=== PATIENT | male | born 1995 | race Caucasian/White ===

== ENCOUNTER 2023-12-10 10:42 | Emergency (ER) | payer BC, OTHER, SELFPAY ==
[2023-12-10 10:45] VITALS: BP 123/63; PULSE 64; RESP 14; TEMP 36.7; O2SAT 98; BMI 22.9
[2023-12-10 11:12] LABS: UR Morphine/Opiate cutoff 300 Negative (Negative); Ur Creatinine Normal (Normal); Ur Specific Gravity Normal (Normal); Urine Amphetamines Negative (Negative); Urine Barbiturates Negative (Negative); Urine Benzodiazepines Negative (Negative); Urine Cocaine Negative (Negative); Urine MDMA Negative (Negative); Urine Methadone Negative (Negative); Urine Methamphetamines Negative (Negative); Urine Oxycodone Negative (Negative); Urine Phencyclidine Negative (Negative); Urine Tetrahydrocannabinol Positive (Negative); Urine Tricyclic Antidepressant Negative (Negative); Urine pH Normal (Normal)
[2023-12-10 11:17] LABS: Add Manual Diff / Slide Review NO; Basophils Absolute Auto 0 /uL (0-100); Basophils Percent Auto 0.5 % (0-2); Eosinophils Absolute Auto 100 /uL (0-450); Eosinophils Percent Auto 1.3 % (2-4); Hematocrit 39.2 % (41-53); Hemoglobin 13.2 g/dL (13.5-17.5); Lymphocytes Absolute Auto 1400 /uL (1100-4500); Lymphocytes Percent Auto 16.6 % (25-40); Mean Corpuscular HGB Conc 33.6 % (30-36); Mean Corpuscular Hemoglobin 30.8 PG (26-34); Mean Corpuscular Volume 91.5 fL (80-100); Monocytes Absolute Auto 600 /uL (0-900); Monocytes Percent Auto 7.7 % (3-14); Neutrophils Absolute Auto 6200 /uL (1500-7000); Neutrophils Percent Auto 73.9 % (50-75); Platelet Count 241 X10^3/uL (150-400); Red Blood Cell Count 4.28 X10^6/uL (4.5-5.9); Red Cell Distribution Width 13.5 % (11.6-14.8); White Blood Cell Count 8.4 X10^3/uL (4.5-11.0)
[2023-12-10 11:41] LABS: Acetaminophen < 10 ug/mL (10-30); Alanine Aminotransferase 22 IU/L (<50); Albumin 4.2 g/dL (3.5-5.0); Albumin Globulin Ratio 1.6 (1.0-2.8); Alkaline Phosphatase 63 U/L (38-126); Aspartate Aminotransferase 31 IU/L (17-59); BUN Creatinine Ratio 16.5 (6-22); Bilirubin Total 0.4 mg/dL (0.2-1.3); Blood Urea Nitrogen 14 mg/dL (9-20); Calcium 8.7 mg/dL (8.4-10.2); Carbon Dioxide 26 mmol/L (22-32); Chloride 107 mmol/L (98-107); Estimated Glomerular Filt Rate > 60 mL/min (>60); Ethanol (ETOH) < 10 mg/dL; Globulin 2.7 g/dL (1.7-4.1); Glucose 144 mg/dL (70-100); HEMOLYSIS < 15 (0-50); Potassium 4.1 mmol/L (3.4-5.1); Salicylate < 1.0 mg/dL (<20); Sodium 139 mmol/L (137-145); Total Protein 6.9 g/dL (6.3-8.2)
[2023-12-10 11:54] LABS: Free T4, Direct Thyroxine 0.92 ng/dL (0.78-2.19)
[2023-12-10 12:08] LABS: Thyroid Stimulating Hormone 0.979 uIU/mL (0.47-4.68)
--- NOTE | 2023-12-10 13:33 | ED.PSYCH ---
HPI - Psych General Chief Complaint: Psychiatric Symptoms Stated Complaint: mental health evaul Time Seen by Provider: 12/10/23 13:27 Source: patient Mode of arrival: Ambulatory History of Present Illness HPI Narrative: Patient 28-year-old male presenting today with voices in his head. He reports that he always as voices but they are getting a little bit louder. Denies any suicidal or homicidal ideations. He went to work today told somebody at work and now a student services representative from his work is with him. He is comfortable speaking in front of them. He has never been on antipsychotics but is on an antidepressant. Denies any alcohol or drug use. He reports that he is significant decrease in appetite has not eaten since last night, he is to make it to work. Related Data Allergies Allergy/AdvReac Type Severity Reaction Status Date / Time No Known Drug Allergies Allergy Verified 12/10/23 10:45 Patient History Social History Smoking Status: Current every day smoker Smoking Status: Current every day smoker alcohol intake frequency: holidays/special occasions only Substance Use Type: marijuana Exam Initial Vital Signs Initial Vital Signs: Vital Signs Temperature 98.1 F 12/10/23 10:45 Pulse Rate 64 12/10/23 10:45 Respiratory Rate 14 12/10/23 10:45 Blood Pressure 123/63 12/10/23 10:45 Pulse Oximetry 98 12/10/23 10:45 Oxygen Delivery Method Room Air 12/10/23 10:45 GENERAL: Mildly disheveled cooperative good eye contact CARDIOVASCULAR: peripheral pulses in tact, cap refill <2 sec RESPIRATORY: No respiratory distress, speaks in full sentences without difficulty EXTREMITIES: Normal range of motion, no clubbing or edema. Neurovascularly intact NEUROLOGICAL: Cranial nerves II through XII grossly intact. Normal gait and speech. SKIN: Warm, dry, no petechiae, no rashes or lesions. Psych Appearance: well kempt Mental Status: mental status grossly normal Speech and Movement: speech and movement normal Affect: blunted Attitude: cooperative Thought Process: normal Thought Content: hallucinations Judgment: fair Course Orders Ordered: ED Orders 12/10/23 10:51 Consult to HEAT TREATMENT TECHNICIAN - Medical Records Clerk Stat 12/10/23 10:54 Urine Drug Screen, Rapid Stat 12/10/23 11:08 Acetaminophen Stat Complete Blood Count AUTO DIFF Stat Comprehensive Metabolic Panel Stat Ethanol (ETOH) Stat Free T4, Direct Thyroxine Stat Salicylate Stat Thyroid Stimulating Hormone Stat 12/10/23 13:43 COVID19 -Nasal RAPID Stat Discontinued Medications Lorazepam (Lorazepam 0.5 Mg Tablet) 1 mg PO NOW ONE Stop: 12/10/23 14:44 Last Admin: 12/10/23 14:48 Dose: 1 mg Documented By: Vital Signs Vital signs: Vital Signs - 8 hr 12/10/23 10:45 12/10/23 15:52 Temperature 98.1 F Pulse Rate 64 52 L Respiratory Rate 14 16 Blood Pressure 123/63 124/61 Pulse Oximetry 98 98 Oxygen Delivery Method Room Air Room Air MDM - Psych Lab Data 12/10/23 11:08 12/10/23 11:08 Labs: Lab Results 12/10/23 12/10/23 12/10/23 Range/Units 10:54 11:08 13:43 WBC 8.4 (4.5-11.0) X10^3/uL RBC 4.28 L (4.5-5.9) X10^6/uL Hgb 13.2 L (13.5-17.5) g/dL Hct 39.2 L (41-53) % MCV 91.5 (80-100) fL MCH 30.8 (26-34) PG MCHC 33.6 (30-36) % RDW 13.5 (11.6-14.8) % Plt Count 241 (150-400) X10^3/uL Neut % (Auto) 73.9 (50-75) % Lymph % (Auto) 16.6 L (25-40) % [place] % (Auto) 7.7 (3-14) % Eos % (Auto) 1.3 L (2-4) % Baso % (Auto) 0.5 (0-2) % Neut # (Auto) 6200 (9224-1178) /uL Lymph # (Auto) 1400 (7463-9878) /uL [place] # (Auto) 600 (0-900) /uL Eos # (Auto) 100 (0-450) /uL Baso # (Auto) 0 (0-100) /uL Sodium 139 (137-145) mmol/L Potassium 4.1 (3.4-5.1) mmol/L Chloride 107 (98-107) mmol/L Carbon Dioxide 26 (22-32) mmol/L BUN 14 (9-20) mg/dL Creatinine 0.85 (0.66-1.25) mg/dL Estimated GFR > 60 (>60) mL/min BUN/Creatinine Ratio 16.5 (6-22) Glucose 144 H (70-100) mg/dL Calcium 8.7 (8.4-10.2) mg/dL Total Bilirubin 0.4 (0.2-1.3) mg/dL AST 31 (17-59) IU/L ALT 22 (<50) IU/L Alkaline Phosphatase 63 (38-126) U/L Total Protein 6.9 (6.3-8.2) g/dL Albumin 4.2 (3.5-5.0) g/dL Globulin 2.7 (1.7-4.1) g/dL Albumin/Globulin Ratio 1.6 (1.0-2.8) TSH 0.979 (0.47-4.68) uIU/mL Free T4 0.92 (0.78-2.19) ng/dL Salicylates < 1.0 (<20) mg/dL U Opiates 300ng/mL cut Negative (Negative) Ur Oxycodone Screen Negative (Negative) Urine Methadone Screen Negative (Negative) Acetaminophen < 10 (10-30) ug/mL Ur Barbiturates Screen Negative (Negative) U Tricyclic Antidepress Negative (Negative) Ur Phencyclidine Scrn Negative (Negative) Ur Amphetamines Screen Negative (Negative) U Methamphetamines Scrn Negative (Negative) Ur MDMA Scrn (Ecstasy) Negative (Negative) U Benzodiazepines Scrn Negative (Negative) Urine Cocaine Screen Negative (Negative) U Marijuana (THC) Screen Positive H (Negative) Urine pH Normal (Normal) Urine Specific [place] Normal (Normal) Ethyl Alcohol < 10 ( - 10) mg/dL Ur Creatinine Normal (Normal) SARS-CoV-2 (PCR) Negative (Negative) Urine Dip Bedside Urine Glucose Negative Bedside Urine Bilirubin - Negative Bedside Urine Ketone - Negative Urine Specific [place] 1.025 Bedside Urine Occult Blood - Negative Bedside Urine pH 6.0 Bedside Urine Protein - Negative Bedside Urine Urobilinogen - Negative Bedside Urine Nitrite - Negative Bedside Urine Leukocytes - Negative Esterase MDM Narrative Medical decision making narrative: Patient 28-year-old male presenting today with hallucinations. Denies suicidal homicidal ideations. He is always eating questionable if he showering does not appear grossly disabled plethora are concerns. Does not meet involuntary criteria. After discussion with him he is willing to go voluntarily. Blood work has been reviewed without obvious abnormality Patient is medically cleared Patient evaluated by social work, placed at [facility] Patient was given a p.o. dose of Ativan to help with agitation. He was offered a nicotine patch but declined Discharge Plan Departure Patient Disposition: Xfer Psychiatric Hosp Clinical Impression: Hallucinations
--- NOTE | 2023-12-10 13:54 | CM.SWNOTE ---
ED LIVESTOCK JUDGING COACH Assessment LIVESTOCK JUDGING COACH - Wildlife Ecology Professor Assessment LIVESTOCK JUDGING COACH/Wildlife Ecology Professor Assessment Time Spent with Patient Start date 12/10/23 Visit Start Time 11:30 End date 12/10/23 Visit End Time 11:45 Total time Care Management spent on 15 minutes patient visit-in minutes Mental Health Screening Include Onset, Duration, Intensity Presenting Problem Patient presents to ED with employer/nursing home manager because he told his boss today that he was unable to work because he was hearing voices. In triage, patient reports that he has been hearing voices for quite some time and he is used to it. Precipitating Event(s) Patient denies any triggering recent events, patient states he told his bosses about the voices he was hearing today because he didn't feel like he could work. Patient is currently homeless and reports he is working with [employer] to seek out housing. Patient's nursing home manager reports that patient is normally a very positive individual and capable of completing tasks, but today patient walked into work reporting he is hearing voices and having difficulty being at work. Patient states he has had recent difficulty managing day to day tasks at home and managing daily life. Patient Strengths Patient has support from employers, friends and family in the area. Patient states he goes to [facility] for medication . Current Behavioral Health Provider(s) No current provider, patient Include Facility, Provider, Ph. # states he was waiting for [facility] to call him for MH services. Patient gives consent for LIVESTOCK JUDGING COACH to call [facility], it is reported that there are no MH openings in [facility]. Psych. Hx Mental Health and Chemical It is reported by [facility] that Dependency patient is prescribed Busprione 7.5mg for anxiety. Patient endorses Marijuana and ETOH use and denies any other substance use. Patient's Toxicology is positive for Marijuana. Family Hx of Behavioral Abuse None reported. Psychiatric Hospitalizations (date(s)/ No hx location) Psychosocial information & Support Patient is 28 y/o male who Systems currently resides in his car. Patient states he has supports from local friends and family , patient's employers are supportive as well. School/Work Patient works at [employer] in [place], [place] Legal Concerns Legal Matters - Outstanding Issues None reported Mental Status Orientation (Person/Place/Time) A/Ox4 Stated Mood having mental problems Affect (Congruent with Mood?) flat, congruent with mood Thought Content - Specify/Describe Patient endorses he hears Obsessions, Delusions, Hallucinations peoples voices whenever, patient states I'm not able to say when asked about what voices tell him. Patient denies visual hallucinations and patient endorses fear that someone is out to get him and patient is unable to elaborate on this. Thought Processes (Wqcwlcf-Inoeqmlv-Atto thought blocking Tyqbatmi-Ojpphwmu-Gsfdlvkjuv- Kbdumjcbwphehu-Fmhaacr-Lzprwdjewmim- Thought Blocking) Speech (Nrukhx-Lgzl-Vbmgoib-Rapid-Soft- slow to respond Loud-Pressured) Motor (Rvopui-Likbsnedn-Vusa-Other) normal Insight (Hena-Ykff-Umym/Limited) limited/fair Judgement (Refw-Tdko-Badp/Limited) limited/fair Impulse Control (Adequate-Impaired) adequate Memory (Ibzsabcjx-Vgpsil-Carmkp, intact, not formally assessed Impaired-Intact) Concentration (Intact-Impaired) intact Attention (Intact-Impaired) intact Behavior (Appropriate-Inappropriate) appropriate Additional Comment Patient presents as calm, and cooperative. Risk Assessment Suicidal Ideation (Plan) No Homicidal Ideation (Plan) No Intervention Intervention LIVESTOCK JUDGING COACH enters room to meet with patient, present in room is patient's nursing home manager and employer manager law. Patient gives consent for them to be present . LIVESTOCK JUDGING COACH offerers to speak with patient privately and he declines. Patient reports he told his boss he was unable to work because he was hearing voices. Patient is unable to elaborate when asked about voices. Patient endorses concern for his safety and paranoia. Patient endorses that he has had difficulty managing day to day life with everything for quite a while. Patient's nursing home manager privately reports that patient is normally a positive productive employee and today he walked into work like he had just got into a fight with a distraught presentation. ED provider and LIVESTOCK JUDGING COACH discuss voluntary inpatient hospitalization with patient and patient presents with agreement and understanding. It is the opinion of this LIVESTOCK JUDGING COACH that patient is appropriate for and would benefit from voluntary inpatient hospitalization for medication management, safety and crisis stabilization. Patient presents with grave disability and has not been able to secure outpatient services. LIVESTOCK JUDGING COACH reviews this with ED provider Dr. Perez who indicates agreement and understanding. Plan RA Plan LIVESTOCK JUDGING COACH to seek voluntary inpatient bed for patient upon medical clearance. Megan Garcia OBSTETRICS TECH
[2023-12-10 14:07] LABS: COVID19 -Nasal RAPID Negative (Negative)
[2023-12-10] MEDS: LORazepam 0.5 MG TABLET 1 MG PO (14:48)
--- NOTE | 2023-12-10 15:42 | PC.NURSE ---
Spoke with SANDRA Martins at [facility] for report
[2023-12-10 15:52] VITALS: BP 124/61; PULSE 52; RESP 16; O2SAT 98
--- NOTE | 2023-12-10 16:30 | CM.SWNOTE ---
ED DESK OPERATOR Note DESK OPERATOR calls [facility] intake, it is reported that they have beds. DESK OPERATOR faxes clinicals for review. DESK OPERATOR receives call from Lakshmi at [facility] intake who reports that patient is accepted, accepting provider is Dr. Tirso Esquivel, RN to RN ph # is [phone]. Sherlyn FLORES gives report to Lakshmi via phone. It is reported that patient can get there by 1730 or it would have to be after 1999. production assembly operator calls all BLS services and schedules BLS with [facility] to arrive at 1645, DESK OPERATOR calls Lakshmi at [facility] regarding transport. Plan: patient to transfer to [facility] for voluntary inpatient hospitalization at 1645. DIMITRIOS Saunders
== END 2023-12-10 16:51 ==
PROVIDERS: Emergency Provider Emergency Medicine
DX: R44.0 Auditory hallucinations (principal); Z20.822 Contact with and (suspected) exposure to COVID-19
CPT/HCPCS: 36415; 80053; 80305; 80320; 80329; 81003; 84439; 84443; 85025; 87635; 99284; G0480